=== PATIENT | male | born 2000 | race African-American/Black ===

== ENCOUNTER 2018-08-08 10:18 | Emergency (ER) | payer MEDICAID, OTHER ==
[~2018-08-08] VITALS: Ht 167.6 cm; Wt 81.6 kg
[~2018-08-08 10:18] MED LIST: LACT10SO6 PO
--- NOTE | 2018-08-08 11:05 | NUR ---
PT BIB MOTHER C/O INCREASED AGGRESSION AND TROUBLE SLEEPING FOR THE LAST WEEK. 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 NO SI OR HI. NAD NOTED. RESP EVEN UNLABORED. PT WEARING HEADPHONES AND WITHDRAWN, SITTING ON THE FLOOR. MOTHER AT BEDSIDE.
[2018-08-08] MEDS ORDERED: LORAZEPAM 1 MG TABLET ONE (11:43)
--- NOTE | 2018-08-08 11:50 | NUR ---
Patient discharged to home in stable condition. Written and verbal after care instructions given. Mother verbalizes understanding of instruction and acknowledges receipt of resources.
[2018-08-08 11:51] VITALS: BP 135/82
[2018-08-08] MEDS ORDERED: LORAZEPAM 1 MG TABLET PO ONE (12:00)
== END 2018-08-08 11:52 | disposition home or self-care (01) ==
LOC: ER 10:20
DX: F98.9 Unspecified behavioral and emotional disorders with onset usually occurring in childhood and adolescence (principal); F84.0 Autistic disorder
CPT/HCPCS: 99283; A4606; Z7610

== ENCOUNTER 2019-03-04 12:37 | Emergency (ER) | payer OTHER ==
[~2019-03-04] VITALS: Ht 165.1 cm; Wt 70.8 kg
[2019-03-04 12:51] VITALS: BP 141/84
== END 2019-03-04 13:04 | disposition home or self-care (01) ==
LOC: ER 12:37
DX: L72.9 Follicular cyst of the skin and subcutaneous tissue, unspecified (principal); F84.0 Autistic disorder

== ENCOUNTER 2021-10-24 15:06 | Emergency (ER) | payer OTHER ==
[~2021-10-24] VITALS: Ht 175.3 cm; Wt 90.7 kg
[2021-10-24 16:54] VITALS: BP 145/90
== END 2021-10-24 16:54 | disposition home or self-care (01) ==
LOC: ER 15:12
DX: R56.9 Unspecified convulsions (principal); F84.0 Autistic disorder; Z79.810 Long term (current) use of selective estrogen receptor modulators (SERMs)